=== PATIENT | female | born 1965 | race Caucasian/White ===

== ENCOUNTER → 2023-07-23 06:36 | Day surgery (SDC) | payer OTHER, SELFPAY ==
[2023-07-18 09:48] VITALS: BMI 26.6
--- NOTE | 2023-07-23 | PATH_ITS ---
[facility] Accession Number: [id number] No. of containers..01 Tissue . 01 Material submitted: . foot - LEFT FOOT PLANTAR FIBROMA . 01 Diagnosis: Soft Tissue, Left Foot, Excision: Consistent with a superficial plantar fibromatosis. Negative for significant atypia and malignancy. MRV 07/27/2023 1812 Local . 01 Electronically signed: . Hanna Brandt MD, Pathologist NPI- [id number] . 01 Gross description: . The specimen is received in formalin labeled with the patient's name, , and left foot plantar fibroma consists of a pale bhatia, rubbery soft tissue fragment measuring 2.0 x 1.4 x 0.6 cm. The specimen is inked blue. Sectioning reveals a pale bhatia, rubbery cut surface. Submitted entirely in cassette A1. ([id number]) /MRV 07/25/2023 1306 Local . 01 Pathologist provided ICD-10: M72.2 . 01 CPT . 855038 Specimen Comment: A courtesy copy of this report has been sent to [facility] Pathology Performed at: 01 [facility] [address] [place] [address], [place], [place] [id number] MD Joshua Méndez MD Phone: [phone]
--- NOTE | 2023-07-23 06:37 | PM.HP.1 ---
History of Present Illness History of Present Illness Date Patient Seen: 07/03/23 Date of Onset of Symptoms: 12/06/22 Chief complaint: Left Foot Soft Tissue Mass Narrative: 57 year old female presents for painful lump on left foot. Patient would like to proceed with surgical resection for definitive resolution in late July. Patient has noticed increased pain and redness to the lesion and its surrounding after being on her feet for an extended time, which is apparent at the time of presentation. Patient would need help with filling out paperwork on leave of absence from work. Patient denies n/v/f/c/sob/cp. FOR[facility]LY [facility], [facility] Medical History (Updated 07/18/23 @ 10:14 by Pino Bacon RN) Abscess of left groin HTN (hypertension) Murmur Ovarian cancer Plantar fascial fibromatosis of left foot Port-A-Cath in place Retinal hemorrhage of right eye Vitamin D deficiency Surgical History (Updated 07/18/23 @ 09:56 by Pino Bacon RN) History of hysterectomy History of knee surgery Hx of surgical procedure Hx of surgical procedure Social History household members: spouse Smoking Status: Never smoker alcohol intake: current Meds Home Medications and Allergies Home Medications Medication Instructions Recorded Confirmed Type lisinopril 5 mg tablet 5 mg PO DAILY 07/18/23 07/18/23 History Allergies Allergy/AdvReac Type Severity Reaction Status Date / Time carboplatin Allergy Unknown itching, Verified 07/18/23 10:09 rash, back pain cefaclor Allergy Unknown Rash Verified 07/18/23 09:51 Sulfa (Sulfonamide Allergy Unknown Rash Verified 07/18/23 09:51 Antibiotics) Review of Systems Review of Systems Narrative: Negative except in HPI. Exam Skin Other: Firm, uniloculated, non mobile, and non translucent soft tissue mass measuring 1.77 sq cm at plantar medial arch. Localized inflammation noted without acute SOI. Neuro Other: Pedal pulses intact. Assessment & Plan Assessment & Plan narrative: Left foot plantar fibroma. Left foot plantar fibroma removal and implantation of allograft. Risks and benefits of the procedure discussed with all questions answered to patient's satisfaction. Reviewed potential complications that may include but not limited to the following: DVT, failure to resolve all symptoms, infection, nerve injury, bleeding, recurrence, or wound. Patient elected to proceed with no guarantees made. Patient verbalized understanding and agreed with surgical plan.
[2023-07-23 06:48] VITALS: BMI 28.4
[2023-07-23 06:52] VITALS: BP 126/78; PULSE 72; RESP 20; TEMP 36.4; O2SAT 100
[2023-07-23] MEDS: LACTATED RINGERS 1,000 ML 100 ML IV (07:04)
[2023-07-23] MEDS: CLINDAMYCIN 900 MG/50 ML PIGGYBACK 50 MG IV (07:50)
[2023-07-23] MEDS: LIDOCAINE 1% 20 ML INJ (08:13)
--- NOTE | 2023-07-23 08:29 | SUR.OPER ---
Supine on padded OR bed, head on pillow, arms secured on padded arm boards at <90 degrees abduction, legs uncrossed, safety belt at thigh, tape over blanket over right lower leg, Left leg elevated on blankets and under control of surgeon. [place] bump under left hip.
[2023-07-23] MEDS: BUPIVACAINE 0.5% (PF) 10 ML VIAL INJ (08:49)
[2023-07-23 09:21] VITALS: BP 116/79; PULSE 61; RESP 16; TEMP 37.1; O2SAT 100
[2023-07-23 09:26] VITALS: BP 130/83; PULSE 57; RESP 14; O2SAT 99
[2023-07-23 09:31] VITALS: BP 132/76; PULSE 61; RESP 14; O2SAT 99
[2023-07-23 09:41] VITALS: BP 124/78; PULSE 60; O2SAT 100
[2023-07-23 09:59] VITALS: BP 126/72; PULSE 55; RESP 14; TEMP 36.3; O2SAT 97
--- NOTE | 2023-07-23 10:19 | PM.OP.1 ---
Operative Date/Time/Diagnoses Date of procedure: 07/23/23 Pre-op diagnosis: Left foot plantar fibroma Post-op diagnosis: same Procedure & Clinicians Procedure: 1. Left foot plantar fasiectomy, partial, for removal of fibroma (CPT 70040) 2. Left foot application of skin substitute graft (CPT 13237) Same procedure as scheduled: Yes Surgeon: Sunny Mesa Anesthesia Type: Sedation Operative Notes Findings: Nodular, hard, oval, unifocal mass excised from medial central band of plantar fascia. Closure Type: primary Prosthetic devices, grafts, tissues, transplants, or devices: 2 x 2 Stravix graft Estimated Blood Loss (mL): 3 Tourniquet time (min): 24 Procedure in detail: The patient was identified, brought into the operating via gurney, and transferred to the operating room table. The patient was in the supine position. An 18 inch ankle tourniquet was applied. The patient received a preoperative local block to the foot with 8 cc 1% lidocaine plain. The left foot was then prepped and draped in the usual sterile fashion followed by time-out as per operating room protocol with the surgical team all in agreement Attention was directed to the palpable mass at plantar left foot. An S shaped incision was outlined with marking pen. Dissection was carried out using # 15 scalpel from skin down to subcutaneous tissue. Care was taken to retract neurovascular structures away from the lesion. A freer elevator was used to create a plane, lifting the mass away from underlying muscle belly. It was then transversely incised and excised at approximately 1.5 cm away from its proximal border. Under tension, it was then removed at up to approximately 1.5 cm away from its surrounding tissues. Description of mass is noted above, which was passed off and sent to Pathology for gross evaluation. Tourniquet was released at 24 minutes. Procedure site was irrigated. An entire 2 x 2 Stravix graft was examined, prepared, and applied per manufacture protocol using 2-0 vicryl to fill the void and reduce scar tissue adhesion. The surgical site was then closed from deep to superficial using 3-0 vicryl and 2-0 and 3-0 nylons. 8 cc of 0.5% marcaine plain was administerd locally to the foot for post-op block. The incision site was then cleansed and dried, and iodine soaked Adaptic was applied. Sterile dressing included gauze, abdominal pad, Kerlix, and Coban with minimum compression. Patient tolerated procedure and anesthesia without complication. All counts were corrected. Patient was transferred to PACU hemodynaiclly stable. Post-operative Condition: stable Disposition: same day surgery Plan for aftercare: NWB to extremity. Keep dressing clean, dry, and intact. Elevate on 2 pillows. Ice behind knee. Take pain medications as directed. Follow-up as scheduled.
--- NOTE | 2023-07-23 10:25 | SUR.PHASEII ---
Pt ready for Discharge. went to the pharmacy to picker packer Rx. Pt resting with foot up waiting for .
== END | disposition home or self-care (01) ==
PROVIDERS: Referring Provider Podiatrist Foot & Ankle Surgery; Visit Provider Podiatrist Foot & Ankle Surgery
PROC: (CPT 28060; principal; 2023-07-23 07:45)
DX: M72.2 Plantar fascial fibromatosis (principal); E78.5 Hyperlipidemia, unspecified; I10 Essential (primary) hypertension; Z85.43 Personal history of malignant neoplasm of ovary
CPT/HCPCS: 28060; 15275; J1100; J2405; J2704; J3010